=== PATIENT | female | born 1980 ===

== ENCOUNTER 2017-07-25 15:38 | Inpatient (IN) | payer MEDICARE, OTHER, MEDICAID ==
--- NOTE | 2017-07-25 16:22 | C.PDOC ---
History Of Present Illness 36-year-old female, presents to the emergency department with complaints of worsening depression. Patient is non-compliant with medication for the past week. Patient states she is depressed, and is seeking admission. Denies any alcohol or drug use. No suicidal ideation. No other complaints at this time. Time Seen by Provider: 07/25/17 16:05 Chief Complaint (Nursing): Psychiatric Evaluation History Per: Patient History/Exam Limitations: no limitations Onset/Duration Of Symptoms: Days Past Medical History Reviewed: Historical Data, Nursing Documentation, Vital Signs Vital Signs: Last Vital Signs Temp 99.5 F 07/25/17 15:41 Pulse 80 07/25/17 18:31 Resp 18 07/25/17 18:31 BP 133/91 H 07/25/17 18:31 Pulse Ox 99 07/25/17 18:31 - Medical History PMH: Anxiety, Depression, Schizophrenia Denies: Diabetes, Hepatitis, HIV, HTN, Chronic Kidney Disease, Seizures, Sexually Transmitted Disease - [facility] Procedures GROUP PSYCHOTHERAPY (01/10/16) INDIVIDUAL PSYCHOTHERAPY, SUPPORTIVE (01/10/16) MEDICATION MANAGEMENT (01/10/16) Family History: States: No Known Family Hx - Social History Hx Tobacco Use: No Hx Alcohol Use: No Hx Substance Use: No - Immunization History Hx Tetanus Toxoid Vaccination: No Hx Influenza Vaccination: No Hx Pneumococcal Vaccination: No Review Of Systems Except As Marked, All Systems Reviewed And Found Negative. Constitutional: Negative for: Fever, Chills Cardiovascular: Negative for: Chest Pain Respiratory: Negative for: Shortness of Breath Gastrointestinal: Negative for: Vomiting Neurological: Negative for: Weakness Psych: Positive for: Depression. Negative for: Psychosis, Suicidal ideation Physical Exam - Physical Exam Appears: Non-toxic, No Acute Distress, Other (flat affect. No active psychosis) Skin: Warm, Dry, No Rash Head: Atraumatic, Normacephalic Eye(s): bilateral: Normal Inspection, PERRL, EOMI Nose: Normal Oral Mucosa: Moist Lips: Normal Appearing Neck: Normal ROM Chest: Symmetrical Cardiovascular: Rhythm Regular, No Murmur Respiratory: Normal Breath Sounds, No Accessory Muscle Use Gastrointestinal/Abdominal: Soft, No Tenderness Extremity: Normal ROM Neurological/Psych: Oriented x3, Normal Speech ED Course And Treatment - Laboratory Results Result Diagrams: 07/25/17 17:17 07/25/17 17:17 O2 Sat by Pulse Oximetry: 99 Pulse Ox Interpretation: Normal Reevaluation Time: 17:44 Reassessment Condition: Unchanged (MED CLEAR CRISIS. PSYCH NOTIFIED. RECOMMEND MEDICINE CONSULT PRN FOR ASYMPTOMATIC BACTERIURIA) Disposition Counseled Patient/Family Regarding: Studies Performed, Diagnosis - Disposition Disposition: HOSPITALIZED Disposition Time: 20:25 Condition: STABLE Forms: [facility] (Gambian) - POA Present On Arrival: None - Clinical Impression Clinical Impression: Schizophrenia - Scribe Statement The provider has reviewed the documentation as recorded by the Scribe (Jerel Mills) All medical record entries made by the Scribe were at my direction and personally dictated by me. I have reviewed the chart and agree that the record accurately reflects my personal performance of the history, physical exam, medical decision making, and the department course for this patient. I have also personally directed, reviewed, and agree with the discharge instructions and disposition. Decision To Admit - Pt Status Changed To: Hospital Disposition Of: Inpatient - Admit Certification Admit to Inpatient:: After my assessment, the patient will require hospitalization for at least two midnights. This is because of the severity of symptoms shown, intensity of services needed, and/or the medical risk in this patient being treated as an outpatient. - InPatient: Physician Admission Certification: I certify that this patient requires 2 or more midnights of care for the following reason:: see note - . Bed Request Type: Psychiatry Admitting Physician: Shalini Willingham Patient Diagnosis: Schizophrenia
[2017-07-25 17:28] LABS: BASO # 0.1 K/uL (0.0-0.2); BASO % 0.6 % (0.0-2.0); EOS % 0.3 % (0.0-4.0); HEMATOCRIT 38.9 % (34.0-47.0); LYMPH # 3.3 K/uL (1.0-4.3); LYMPH % 26.6 % (20.0-40.0); MEAN CELL VOLUME 88.3 fL (81.0-99.0); MEAN CORPUSCULAR HEMOGLOBIN 30.1 pg (27.0-31.0); MEAN CORPUSCULAR HGB CONC 34.1 g/dL (33.0-37.0); MEAN PLATELET VOLUME 8.9 fL (7.2-11.7); MONO # 0.6 K/uL (0.0-0.8); RED CELL DISTRIBUTION WIDTH 12.6 % (11.5-14.5); WHITE BLOOD COUNT 12.3 K/uL (4.8-10.8)
[2017-07-25 17:34] LABS: ALCOHOL SERUM < 10 mg/dl (0-10); ALKALINE PHOSPHATASE 66 U/L (38-126); ALT/SGPT 35 U/L (9-52); AST/SGOT 21 U/L (14-36); BILIRUBIN,TOTAL 0.8 mg/dL (0.2-1.3); BLOOD UREA NITROGEN 8 mg/dL (7-17); CALCIUM 8.6 mg/dl (8.6-10.4); CARBON DIOXIDE 26 mmol/L (22-30); CHLORIDE 99 mmol/L (98-107); GFR AFRICAN-AMERICAN > 60; GLUCOSE,RANDOM 95 mg/dL (65-105); POTASSIUM 3.3 mmol/L (3.6-5.2); SODIUM 138 mmol/L (132-148); TOTAL PROTEIN 8.4 g/dL (6.3-8.3)
[2017-07-25 17:38] LABS: RBC URINE 28 /hpf (0-3); TRANSITIONAL EPITHIAL < 1 /hpf (0-3); URINE BACTERIA MOD (<OCC); URINE BILIRUBIN NEGATIVE (NEGATIVE); URINE BLOOD 2+ (NEGATIVE); URINE COLOR Yellow (YELLOW); URINE GLUCOSE (UA) NORMAL (Normal); URINE KETONE TRACE mg/dL (NEGATIVE); URINE LEUKOCYTE ESTERASE 2+ Leu/uL (Negative); URINE PROTEIN 1+ mg/dL (NEGATIVE); URINE UROBILINOGEN NORMAL mg/dL (0.2-1.0); WBC URINE 12 /hpf (0-5)
[2017-07-25 18:03] LABS: ALB/GLOB RATIO 1.3 (1.0-2.1)
[2017-07-25 20:55] VITALS: O2SAT 100
[2017-07-25] MEDS: Potassium Chloride 20 mEq ER Tab PO SCH (22:56)
[2017-07-26 08:20] LABS: BLOOD UREA NITROGEN 9 mg/dL (7-17); CALCIUM 8.8 mg/dl (8.6-10.4); CARBON DIOXIDE 25 mmol/L (22-30); CHLORIDE 101 mmol/L (98-107); GFR AFRICAN-AMERICAN > 60; GLUCOSE,RANDOM 101 mg/dL (65-105); POTASSIUM 3.4 mmol/L (3.6-5.2); SODIUM 138 mmol/L (132-148)
--- NOTE | 2017-07-26 08:22 | PCM.BM ---
<Kaelyn Vanessa - Last Filed: 07/26/17 08:21> Treatment Plan Problems - Problems identified on initial assessmt Depression Date Initiated: 07/26/17 Time Initiated: 08:21 Assessment reference: NA Status: Active Treatment assets and liabiliti Patient Assests: adapts well, insightful Patient Liabilities: live alone - Milieu Protocol Maintain good personal hygiene: every shift Encourage regular showers, every shift Remind patient to perform daily oral care, every shift Assist patient to perform ADL's Maintain personal safety: every shift Educate patient to report safety concerns to staff, every shift Monitor environment for contraband/sharps Medication safety: Monitor for expected outcome, potential side effects: every shift, Assess barriers to learning: every shift, Assess readiness for medication education: every shift <Yu Siegel - Last Filed: 07/29/17 11:24> Family Contact Family involvement: Family/SO is involved Family contact: Patient declines to allow family contact at present - Goals for Treatment Patient goals for treatment: "I don't know." Discharge/Continuing Care - Education Needs Education Needs: Patient Medication, Patient Coping Skills - Discharge Discharge Criteria: Tolerates medication w/o severe side effects, Reduction of target symptoms Discharge to:: Home, With Family - Treatment Team Participation Discussed with Family/SO: No Was Patient/Family/SO present at Treatment Team Meeting: Yes <Enid Muse - Last Filed: 07/29/17 11:26> - Diagnosis (1) Schizophrenia Status: Acute Interventions: 07/29/17 11:26 * Assess/adjust medications daily and /or as needed * See patient on an individual basis 7x/week to assess status of hallucinations * Discuss risks, benefits, side effects and alternatives of medications *
[2017-07-26 08:46] LABS: THYROID STIMULATING HORMONE 2.77 mIU/L (0.46-4.68)
--- NOTE | 2017-07-26 09:32 | PCM.PSYCH ---
Initial Psychiatric Evaluation - Initial Psychiatric Evaluation Type of Admission: Voluntary Legal Status: Capacity Chief Complaint (in patient's own words): I am sorry, I am feeling bad.' History of Present Illness and Precipitating Events: Patient is a 36-year-old single female presented to the ED for bizarre behavior. Patient was accompanied by her cousin Ria Briscoe and sister. As per the ED charts, her cousin reported that patient has been behaving bizarrely the past 24 hours. She is constantly apologizing, talking to herself, pacing throughout the house, moving things in the house from one room to another, staring, crying and mute at times. As per the family, in the past when these behaviors occurred it meant patient was decompensating into agitation and aggression. She was [facility] discharged form [facility] more than a year ago. She is not taking her meds for more than 2 weeks. Today, patient remained paranoid and suspicious throughout the evaluation. She appeared disheveled and unkempt. She started crying and became apologetic and appeared very disorganized and delusional. Later, she became mute and started looking around with a blank stare. However, she denies any suicidal ideation or any homicidal ideation. Staff reports that pt has been pacing back and forth since last night. Current Medications: Active Medications Generic Name Dose Route Start Last Admin Trade Name Freq PRN Reason Stop Dose Admin Hydroxyzine HCl 25 mg 07/25/17 21:50 07/26/17 02:46 Atarax PO 25 mg Q4H PRN Administration Anxiety Ibuprofen 400 mg 07/25/17 21:50 Motrin Tab PO Q6H PRN Pain, moderate (4-7) Nitrofurantoin Macrocrystals 100 mg 07/26/17 10:00 Macrobid PO Q12H MARVIN Olanzapine 10 mg 07/25/17 22:00 07/25/17 22:56 Zyprexa PO 10 mg HS MARVIN Administration Potassium Chloride 20 meq 07/25/17 22:00 07/25/17 22:56 K-Dur 20 Meq Er Tab PO 07/26/17 10:01 20 meq DAILY MARVIN Administration Trazodone HCl 50 mg 07/25/17 21:49 Desyrel PO HS PRN Insomnia Past Psychiatric History - Past Psychiatric History Previous Treatment History: Inpatient Pertinent Medical Hx (Current Medical&Sleep Prob, Allergies): Allergies Allergy/AdvReac Type Severity Reaction Status Date / Time No Known Allergies Allergy Verified 07/25/17 15:42 OLANZapine [Zyprexa] 10 mg PO HS #30 tab 03/17/15 traZODone [Desyrel] 50 mg PO HS PRN #30 tab 01/18/16 Review of Systems - Review of Systems All systems: reviewed and no additional remarkable complaints except - Psychiatric Psychiatric: Anxiety, Hallucinations, Irritability, Paranoia Mental Status Examination - Personal Presentation Personal Presentation: Looks stated age - Affect Affect: Constricted - Motor Activity Motor Activity: Psychomotor Retardation - Reliability in Providing Information Reliability in Providing Information: Poor, due to alteration in thoughts, Poor , due to altered mood - Speech Speech: Disorganized - Mood Mood: Anxious - Formal Thought Process Formal Thought Process: Hallucinations, Delusions, Paranoia, Loosening of associations - Hallucinations/Delusions Hallucinations: Auditory Delusions: Persecution - Obsessions/Compulsions Obsessions: No Compulsions: No - Cognitive Functions Orientation: Person, Place, Situation, Time Sensorium: Alert Attention/Concentration: Attentive Abstract Thinking: [place] Estimate of Intelligence: Below average Judgement: Imparied, as evidence by: Poor judgement, Imparied, as evidence by: Lack of insight into illness - Risk Risk: Diminished functioning - Strength & Assets Inventory Strength & Assets Inventory: Family support DSM 5 DX - DSM 5 DSM 5 Diagnosis: Schizophrenia paranoid type continuous - Recommended/Plan of Treatment Treatment Recommendations and Plan of Treatment: Schizophrenia paranoid type continuous CBT Psychoeducation Supportive therapy, group therapy, individual therapy Olanzapine 10 mg by mouth HS Trazodone 50 mg by mouth daily at bedtime - Smoking Cessation Smoking Cessation Initiated: No
[2017-07-26] MEDS: Potassium Chloride 20 mEq ER Tab PO SCH (09:48)
[2017-07-26] MEDS: Ergocalciferol 50,000 Intl Units Cap PO SCH (13:06)
--- NOTE | 2017-07-28 05:39 | PCM.PYCHPN ---
Psychiatric Progress Note - Psychiatric Progress Note Patient seen today, length of contact: 16 min Problems Identified/Issues Discussed: The pt is seen, chart reviewed, case discussed with staff. The pt is compliant with medications and reports no side-effects. Symptoms are improving BUT very slowly and needs more time to stabilize. Support and psychoeducation given. Still very internally preoccupied Medication Change: Yes (meds change) Medical Record Reviewed: Yes Mental Status Examination - Cognitive Function Orientation: Person, Place, Situation, Time Memory: Impaired Attention: Poor Concentration: Poor Association: Loose Fund of Knowledge: Poor - Mood Mood: Anxious - Affect Affect: Constricted - Formal Thought Process Formal Thought Process: Hallucinations, Delusions, Paranoia, Loosening of associations - Suicidal Ideation Suicidal Ideation: No - Homicidal Ideation Homicidal Ideation: No Goal/Treatment Plan - Goal/Treatment Plan Need for Continued Stay: Discharge may exacerbated symptoms, Severe functional impairment Progress Toward Problem(s) and Goals/Treatment Plan: Continue medications Support and psychoeducation daily Attend groups and activities daily After care planning by NA
--- NOTE | 2017-07-28 12:48 | PCM.PYCHPN ---
Psychiatric Progress Note - Psychiatric Progress Note Patient seen today, length of contact: 16 min Patient Chief Complaint: I am sorry, I am feeling bad.' Problems Identified/Issues Discussed: The patient was seen, chart reviewed, and case discussed with staff. Patient remained disorganized, and internally preoccupied. She remained delusional, suspicious and paranoid. She remained partially mute and internally preoccupied. She remained guarded about any information. She is very limited in her responses. Patient is compliant with medications and reports no side effects. Symptoms are improving but need more time to stabilize. After care discussed, support and psychoeducation given. Medication Change: Yes (meds change) Medical Record Reviewed: Yes Mental Status Examination - Cognitive Function Orientation: Person, Place, Situation, Time Memory: Impaired Attention: Poor Concentration: Poor Association: Loose Fund of Knowledge: Poor - Mood Mood: Anxious - Affect Affect: Constricted - Formal Thought Process Formal Thought Process: Hallucinations, Delusions, Paranoia, Loosening of associations - Suicidal Ideation Suicidal Ideation: No - Homicidal Ideation Homicidal Ideation: No Goal/Treatment Plan - Goal/Treatment Plan Need for Continued Stay: Discharge may exacerbated symptoms, Severe functional impairment Progress Toward Problem(s) and Goals/Treatment Plan: Schizophrenia paranoid type continuous CBT Psychoeducation Supportive therapy, group therapy, individual therapy Olanzapine 10 mg by mouth HS Trazodone 50 mg by mouth daily at bedtime Hydroxyzine 25 mg PO Q6hr prn - Smoking Cessation Smoking Cessation Initiated: No
--- NOTE | 2017-07-29 10:02 | PCM.PYCHPN ---
Psychiatric Progress Note - Psychiatric Progress Note Patient seen today, length of contact: 16 min Patient Chief Complaint: "not good" Problems Identified/Issues Discussed: The patient was seen, chart reviewed, and case discussed with staff. Staff report no events overnight. Patient appears disorganized and internally preoccupied. She is highly suspicious and is guarded about any information. She is very limited in her responses. She states, "I don't have my voice. I feel empty inside." Patient is compliant with medications and reports no side effects. Symptoms are improving but need more time to stabilize. After care discussed, support and psychoeducation given. Medication Change: Yes (Increase Olanzapine) Medical Record Reviewed: Yes Mental Status Examination - Cognitive Function Orientation: Person, Place, Situation, Time Memory: Impaired Attention: Poor Concentration: Poor Association: Loose Fund of Knowledge: Poor - Mood Mood: Anxious - Affect Affect: Constricted - Speech Speech: Soft - Formal Thought Process Formal Thought Process: Hallucinations, Delusions, Paranoia, Loosening of associations - Suicidal Ideation Suicidal Ideation: No - Homicidal Ideation Homicidal Ideation: No Goal/Treatment Plan - Goal/Treatment Plan Need for Continued Stay: Discharge may exacerbated symptoms, Severe functional impairment Progress Toward Problem(s) and Goals/Treatment Plan: Schizophrenia paranoid type continuous CBT Psychoeducation Supportive therapy, group therapy, individual therapy Olanzapine 10 mg by mouth HS Trazodone 50 mg by mouth daily at bedtime - Smoking Cessation Smoking Cessation Initiated: No
--- NOTE | 2017-07-30 10:34 | PCM.PYCHPN ---
Psychiatric Progress Note - Psychiatric Progress Note Patient seen today, length of contact: 16 min Patient Chief Complaint: "not good" Problems Identified/Issues Discussed: The patient was seen, chart reviewed, and case discussed with staff. Patient remained disorganized, suspicious and paranoid. She remained partially mute and internally preoccupied. She remained guarded about any information. She is very limited in her responses. She states, "I don't have my voice. I feel empty inside." Patient is compliant with medications and reports no side effects. Symptoms are improving but need more time to stabilize. After care discussed, support and psychoeducation given. Medication Change: Yes (Increase paxil) Medical Record Reviewed: Yes Mental Status Examination - Cognitive Function Orientation: Person, Place, Situation, Time Memory: Impaired Attention: Poor Concentration: Poor Association: Loose Fund of Knowledge: Poor - Mood Mood: Anxious - Affect Affect: Constricted - Speech Speech: Soft - Formal Thought Process Formal Thought Process: Hallucinations, Delusions, Paranoia, Loosening of associations - Suicidal Ideation Suicidal Ideation: No - Homicidal Ideation Homicidal Ideation: No Goal/Treatment Plan - Goal/Treatment Plan Need for Continued Stay: Discharge may exacerbated symptoms, Severe functional impairment Progress Toward Problem(s) and Goals/Treatment Plan: Schizophrenia paranoid type continuous CBT Psychoeducation Supportive therapy, group therapy, individual therapy Paxil 10 mg PO Daily Olanzapine 10 mg by mouth HS Olanzapine 5 mg by mouth Daily Trazodone 50 mg by mouth daily at bedtime - Smoking Cessation Smoking Cessation Initiated: No
--- NOTE | 2017-07-31 11:17 | PCM.PYCHPN ---
Psychiatric Progress Note - Psychiatric Progress Note Patient seen today, length of contact: 16 min Patient Chief Complaint: "not good" Problems Identified/Issues Discussed: This patient was seen, chart reviewed, and case discussed with staff. Patient and staff report no events overnight. She reports depressed mood and reports some improvement in her feelings of hopelessness and helplessness. she slept well and has improvement in her auditory hallucinations. She denies any suicidal or homicidal ideations. Staff reports that she has started speaking but during conversation she gets mute and starts staring. She has started participating in group activities. Patient appears disheveled but appropriately dressed. She remains superficially cooperative and internally preoccupied, but less than previous days. She has a constricted affect with guarded soft speech. She is seen walking in the halls and is social at times. Patient is compliant with medications and reports no side effects. Symptoms are improving but need more time to stabilize. After care discussed, support and psychoeducation given. Medication Change: Yes (Increase paxil) Medical Record Reviewed: Yes Mental Status Examination - Cognitive Function Orientation: Person, Place, Situation, Time Memory: Impaired Attention: WNL Concentration: Poor Association: Loose Fund of Knowledge: Poor - Mood Mood: Anxious - Affect Affect: Constricted - Speech Speech: Soft - Formal Thought Process Formal Thought Process: Loosening of associations - Suicidal Ideation Suicidal Ideation: No - Homicidal Ideation Homicidal Ideation: No Goal/Treatment Plan - Goal/Treatment Plan Need for Continued Stay: Discharge may exacerbated symptoms, Severe functional impairment Progress Toward Problem(s) and Goals/Treatment Plan: Schizophrenia paranoid type continuous CBT Psychoeducation Supportive therapy, group therapy, individual therapy Paxil 20 mg PO Daily Olanzapine 5 mg by mouth Daily Olanzapine 10 mg by mouth HS Trazodone 50 mg by mouth daily at bedtime Hydroxuzine 25 mg pO Q4 hr prn - Smoking Cessation Smoking Cessation Initiated: No
--- NOTE | 2017-08-01 14:57 | PCM.PYCHPN ---
Psychiatric Progress Note - Psychiatric Progress Note Patient seen today, length of contact: 16 min Patient Chief Complaint: "I'm good" Problems Identified/Issues Discussed: This patient was seen, chart reviewed, and case discussed with staff. Patient and staff report no events overnight. She reports simprovement in her mood and auditory hallucinations. She also reports improvement in her paranoia. She denies any suicidal or homicidal ideations. She expresses concern due to being in the hospital and hopes to be discharged soon to see her family. Patient appears disheveled but appropriately dressed. She cooperative but remains guarded during the interview. She has limited social interactions but participates in unit activities. Patient is compliant with medications and reports no side effects. Symptoms are improving but need more time to stabilize. After care discussed, support and psychoeducation given. Medication Change: Yes (increase olanzapine) Medical Record Reviewed: Yes Mental Status Examination - Cognitive Function Orientation: Person, Place, Situation, Time Memory: Impaired Attention: WNL Concentration: Poor Association: Loose Fund of Knowledge: Poor - Mood Mood: Depressed, Anxious - Affect Affect: Constricted, Depressed - Speech Speech: Soft - Formal Thought Process Formal Thought Process: Loosening of associations - Suicidal Ideation Suicidal Ideation: No - Homicidal Ideation Homicidal Ideation: No Goal/Treatment Plan - Goal/Treatment Plan Need for Continued Stay: Discharge may exacerbated symptoms, Severe functional impairment Progress Toward Problem(s) and Goals/Treatment Plan: Schizophrenia paranoid type continuous CBT Psychoeducation Supportive therapy, group therapy, individual therapy Paxil 20 mg PO Daily Olanzapine 10 mg by mouth Daily Olanzapine 10 mg by mouth HS Benztropine 1 mg pO BID Trazodone 50 mg by mouth daily at bedtime Hydroxuzine 25 mg pO Q4 hr prn - Smoking Cessation Smoking Cessation Initiated: No
[2017-08-02] MEDS: Ergocalciferol 50,000 Intl Units Cap PO SCH (12:00)
--- NOTE | 2017-08-03 08:59 | PCM.PYCHPN ---
Psychiatric Progress Note - Psychiatric Progress Note Patient seen today, length of contact: 16 min Patient Chief Complaint: "I'm good" Problems Identified/Issues Discussed: This patient was seen, chart reviewed, and case discussed with staff. Patient and staff report no events overnight. She continues to report improvement in her mood, auditory hallucinations, and paranoia. She denies any suicidal or homicidal ideations. She continues to ask about her discharge to see family. Patient appears disheveled but appropriately dressed. She cooperative but remains guarded during the interview. She has limited social interactions but participates in unit activities. She appears less internally preoccupied than previous days. Patient is compliant with medications and reports no side effects. Symptoms are improving but need more time to stabilize. After care discussed, support and psychoeducation given. Medical Problems: She complains of discoloration to her eyelids. Medication Change: Yes (increase olanzapine) Medical Record Reviewed: Yes Mental Status Examination - Cognitive Function Orientation: Person, Place, Situation, Time Memory: Impaired Attention: WNL Concentration: Poor Association: Loose Fund of Knowledge: Poor - Mood Mood: Depressed, Anxious - Affect Affect: Constricted, Depressed - Speech Speech: Soft - Formal Thought Process Formal Thought Process: Loosening of associations - Suicidal Ideation Suicidal Ideation: No - Homicidal Ideation Homicidal Ideation: No Goal/Treatment Plan - Goal/Treatment Plan Need for Continued Stay: Discharge may exacerbated symptoms, Severe functional impairment Progress Toward Problem(s) and Goals/Treatment Plan: Schizophrenia paranoid type continuous CBT Psychoeducation Supportive therapy, group therapy, individual therapy Paxil 20 mg PO Daily Olanzapine 10 mg by mouth Daily Olanzapine 10 mg by mouth HS Benztropine 1 mg pO BID Trazodone 50 mg by mouth daily at bedtime Hydroxuzine 25 mg pO Q4 hr prn
[2017-08-04] MEDS ORDERED: Magnesium Hydroxide Susp 30 ml UD PO ONE (19:52)
[2017-08-04] MEDS ORDERED: Magnesium Hydroxide Susp 30 ml UD PO PRN (19:58)
[2017-08-05 06:25] VITALS: BP 100/70; PULSE 81; RESP 20; TEMP 98.2
--- NOTE | 2017-08-05 11:27 | PCM.PYCHDC ---
Mental Status Examination - Mental Status Examination Orientation: Person, Place, Situation, Time Memory: Intact Mood: Neutral Affect: Constricted Speech: Soft Attention: WNL Concentration: WNL Association: WNL Fund of Knowledge: WNL Formal Thought Process: No Impairment Description of patient's judgement and insight: good, fair Psychotic Thoughts and Behaviors: denies any AVH Suicidal Ideation: No Current Homicidal Ideation?: No Discharge Summary - Discharge Note Reason for Hospitalization: Patient is a 36-year-old single female presented to the ED for bizarre behavior. Patient was accompanied by her cousin Ria Briscoe and sister. As per the ED charts, her cousin reported that patient has been behaving bizarrely the past 24 hours. She is constantly apologizing, talking to herself, pacing throughout the house, moving things in the house from one room to another, staring, crying and mute at times. As per the family, in the past when these behaviors occurred it meant patient was decompensating into agitation and aggression. She was last discharged form [facility] more than a year ago. She is not taking her meds for more than 2 weeks. Today, patient remained paranoid and suspicious throughout the evaluation. She appeared disheveled and unkempt. She started crying and became apologetic and appeared very disorganized and delusional. Later, she became mute and started looking around with a blank stare. However, she denies any suicidal ideation or any homicidal ideation. Staff reports that pt has been pacing back and forth since last night. Consultations:: List each consultation separately and include: 1. Reason for request. 2. Findings. 3. Follow-up Summary of Hospital Course include:: 1. Description of specific treatment plan utilized for patients during their course of treatmen. 2. Summarize the time- course for resolution of acute symptoms and/or regressed behaviors. 3. Describe issues identified and worked on during hospitalization. 4. Describe medication utilized. 5. Describe medical problems identified and treated. 6. Reassessment of suicide risk Summary of Hospital Course: During the course of her stay, patient (pt) started progressively improving and no longer remained irritable, depressed, and suicidal. Her mood and anxiety were improved and she started attending groups and meetings and started socializing. Patient denied any feelings of hopelessness, helplessness, and worthlessness, denied any problem with the sleep or appetite, denied suicidal ideation or homicidal ideation. Pt denied any auditory or visual hallucinations. Some changes were made in her current medications and patient was discharged on following medications. She tolerated these medications very well and denied any side effects. She was discharged to the [facility]/private psychiatrist - Diagnosis (1) Schizophrenia Status: Acute - Final Diagnosis (DSM 5) Condition upon Discharge: STABLE DSM 5: Schizophrenia paranoid type continuous Disposition: HOME/ ROUTINE Follow-up Treatment Plan: Education: Pt was educated and counseled about the risks and benefits of taking and not taking medications. Pt was educated and counseled about the risks of drinking and abusing drugs. Pt was educated and counseled to go to the ER or call 911 if pt develop suicidal ideation or homicidal ideation, worsening of symptoms or severe side effects of the meds. Prescriptions/Medication Reconciliation: Benztropine [Cogentin] 1 mg PO BID #60 tab OLANZapine [Zyprexa] 10 mg PO BID #60 tab PARoxetine [Paxil] 30 mg PO DAILY #30 tab traZODone [Desyrel] 50 mg PO HS PRN #30 tab PRN Reason: Insomnia
== END 2017-08-05 14:03 | disposition home or self-care (01) | DRG 885 ==
LOC: C.ER 15:38 → C.5E 20:25 → UNDOADMIN 20:25
PROVIDERS: ADMIT Psychiatry & Neurology Psychiatry; ATTEND Psychiatry & Neurology Psychiatry
PROC: GZHZZZZ Group Psychotherapy (ICD-10-PCS; principal; 2017-07-25)
PROC: GZ58ZZZ Individual Psychotherapy, Cognitive-Behavioral (ICD-10-PCS; 2017-07-25)
PROC: GZ56ZZZ Individual Psychotherapy, Supportive (ICD-10-PCS; 2017-07-25)
DX: F20.0 Paranoid schizophrenia (principal); Z91.14 Patient's other noncompliance with medication regimen; Z79.899 Other long term (current) drug therapy

== ENCOUNTER 2018-11-11 02:03 | Inpatient (IN) | payer MEDICARE, MEDICAID ==
--- NOTE | 2018-11-11 02:15 | C.PDOC ---
History Of Present Illness Patient was seen and medically cleared at [facility]. Pt was accepted in tranfer by dr rudd. Pt pleasant , cooperative Time Seen by Provider: 11/11/18 02:14 Chief Complaint (Nursing): Psychiatric Evaluation History Per: Patient History/Exam Limitations: no limitations Onset/Duration Of Symptoms: Days Current Symptoms Are (Timing): Still Present Suicide/Self Injury Attempted (Context): None Modifying Factor(s): None Pain Scale Rating Of: 3 Associated Symptoms: Depression Involuntary Hold By: None Recent travel outside of the [place]: No Additional History Per: Patient, Other (hospital) Past Medical History Reviewed: Historical Data, Nursing Documentation, Vital Signs - Medical History PMH: Anxiety, Depression, Schizophrenia Denies: Diabetes, Hepatitis, HIV, HTN, Chronic Kidney Disease, Seizures, Sexually Transmitted Disease - [facility] GROUP PSYCHOTHERAPY (07/25/17) INDIVIDUAL PSYCHOTHERAPY, COGNITIVE-BEHAVIORAL (07/25/17) INDIVIDUAL PSYCHOTHERAPY, SUPPORTIVE (07/25/17) MEDICATION MANAGEMENT (01/10/16) Family History: States: No Known Family Hx - Social History Hx Tobacco Use: No Hx Alcohol Use: No Hx Substance Use: No - Immunization History Hx Tetanus Toxoid Vaccination: No Hx Influenza Vaccination: No Hx Pneumococcal Vaccination: No Review Of Systems Constitutional: Negative for: Fever, Chills Cardiovascular: Negative for: Chest Pain Respiratory: Negative for: Shortness of Breath Gastrointestinal: Negative for: Abdominal Pain Neurological: Negative for: Weakness Psych: Positive for: Depression Physical Exam - Physical Exam Appears: Non-toxic, No Acute Distress Chest: Symmetrical Cardiovascular: Rhythm Regular Respiratory: No Rales, No Rhonchi, No Wheezing Gastrointestinal/Abdominal: Soft, No Tenderness Extremity: Normal ROM Neurological/Psych: Oriented x3 Gait: Steady ED Course And Treatment O2 Sat by Pulse Oximetry: 100 Pulse Ox Interpretation: Normal Disposition Discussed With : Shalini Rudd Comment: accepted the pt on his service and took over the care at 2:14 AM Doctor Will See Patient In The: Hospital Counseled Patient/Family Regarding: Studies Performed, Diagnosis - Disposition Disposition: HOSPITALIZED Disposition Time: 02:14 Condition: FAIR Forms: [facility] (Korean) - POA Present On Arrival: None - Clinical Impression Clinical Impression: Schizophrenia Decision To Admit - Pt Status Changed To: Hospital Disposition Of: Inpatient - Admit Certification Admit to Inpatient:: After my assessment, the patient will require hospitalization for at least two midnights. This is because of the severity of symptoms shown, intensity of services needed, and/or the medical risk in this patient being treated as an outpatient. - InPatient: Physician Admission Certification: I certify that this patient requires 2 or more midnights of care for the following reason:: After my assessment, the patient will require hospitalization for at least two midnights. This is because of the severity of symptoms shown, intensity of services needed, and/or the medical risk in this patient being treated as an outpatient. - . Bed Request Type: Psychiatry Admitting Physician: Shalini Rudd Patient Diagnosis: Schizophrenia
--- NOTE | 2018-11-11 05:00 | PCM.BM ---
<Marissa Boo - Last Filed: 11/11/18 04:58> Treatment Plan Problems - Problems identified on initial assessmt Alterate thought process Date Initiated: 11/11/18 Time Initiated: 04:00 Assessment reference: NA Status: Active deffecting copyn Date Initiated: 11/11/18 Time Initiated: 04:00 Assessment reference: NA Status: Active Treatment assets and liabiliti Patient Assests: adapts well, insightful, ADL independent, good support system, cognitively intact Patient Liabilities: poor support system, auditory impairment - Milieu Protocol Maintain good personal hygiene: daily Encourage regular showers, daily Remind patient to perform daily oral care, daily Assist patient to perform ADL's Conduct patient checks and document Observation sheet: Q15 minutes Maintain personal safety: every shift Educate patient to report safety concerns to staff, every shift Monitor environment for contraband/sharps Medication safety: Monitor for expected outcome, potential side effects: every shift, Assess barriers to learning: every shift, Assess readiness for medication education: every shift <Enid Muse - Last Filed: 11/12/18 11:24> - Diagnosis (1) Schizophrenia Status: Acute Interventions: 11/12/18 11:24 * Assess/adjust medications daily and /or as needed * See patient on an individual basis 7x/week to assess status of hallucinations * Discuss risks, benefits, side effects and alternatives of medications * <Yu Siegel - Last Filed: 11/12/18 11:37> Family Contact Family involvement: Family/SO is involved Family contact: Patient agrees to contact Family contact name: Alise Cao-sister Family contacted how many times per week?: 1 - Goals for Treatment Patient goals for treatment: "I don't know." Discharge/Continuing Care - Education Needs Education Needs: Patient Medication, Patient Coping Skills - Discharge Discharge Criteria: Tolerates medication w/o severe side effects, Reduction of target symptoms Discharge to:: Home, With Family - Treatment Team Participation Discussed with Family/SO: No Was Patient/Family/SO present at Treatment Team Meeting: Yes
--- NOTE | 2018-11-11 10:52 | PCM.PSYCH ---
Initial Psychiatric Evaluation - Initial Psychiatric Evaluation Type of Admission: Voluntary Legal Status: Capacity Chief Complaint (in patient's own words): I was hearing voices. History of Present Illness and Precipitating Events: This is a 38 year old [place] female, who is single, lives alone, and unemployed, came to [facility] because because of the disorganized behavior. Patient has a long history of schizophrenia paranoid type continues. She has a history of multiple psychiatric hospitalizations. She was last at [facility] almost 2 years ago and did not follow up with a psychiatrist after discharge. Patient is a poor historian. Patient appears disorganized and internally preoccupied. She appears very disheveled and unkempt. She reports that she was taking her medication until they ran out. As per patient she became noncompliant with medications. Patient states she hears voices telling her to harm herself and others. She also states she sees the devil, but it does not say anything to her. She became increasingly disorganized and paranoid. Yesterday she became increasingly disorganized she came to the hospital to get help. She remained made paranoid, psychotic and bizarre throughout the interview. She was responding to internal stimuli, abrupted speech, suspicious of her surroundings, disheveled, and disorganized in appearance and behavior. PsychHx: Schizophrenia paranoid type continues MedHx: denies Allergies: unobtainable Meds: Risperdal, Benztropine Current Medications: Active Medications Generic Name Dose Route Start Last Admin Trade Name Freq PRN Reason Stop Dose Admin Benztropine Mesylate 0.5 mg 11/11/18 06:43 11/11/18 07:26 Cogentin PO 0.5 mg Q6 PRN Administration Muscle spasm Haloperidol 5 mg 11/11/18 06:36 11/11/18 07:26 Haldol PO 5 mg Q6 PRN Administration Agitation Hydroxyzine HCl 25 mg 11/11/18 04:31 11/11/18 07:26 Atarax PO 25 mg Q6 PRN Administration Anxiety Influenza Virus Vaccine 60 mcg 11/13/18 10:00 Flucelvax Quad [id number] Syr IM 11/13/18 10:01 .ONCE ONE Pneumococcal Polyvalent Vaccine 0.5 ml 11/13/18 10:30 Pneumovax 23 Vaccine IM 11/13/18 10:31 .ONCE ONE Past Psychiatric History - Past Psychiatric History Previous Treatment History: Inpatient Pertinent Medical Hx (Current Medical&Sleep Prob, Allergies): Allergies Allergy/AdvReac Type Severity Reaction Status Date / Time No Known Allergies Allergy Verified 11/11/18 02:15 No Known Home Med 11/11/18 Review of Systems - Review of Systems All systems: reviewed and no additional remarkable complaints except - Psychiatric Psychiatric: Anxiety, Auditory Hallucinations, Irritability, Paranoia Mental Status Examination - Personal Presentation Personal Presentation: Looks stated age - Affect Affect: Constricted - Motor Activity Motor Activity: Calm - Reliability in Providing Information Reliability in Providing Information: Poor, due to alteration in thoughts, Poor, due to altered mood - Speech Speech: Disorganized - Mood Mood: Anxious - Formal Thought Process Formal Thought Process: Hallucinations, Delusions, Paranoia, Loosening of associations - Hallucinations/Delusions Hallucinations: Visual, Auditory Delusions: Persecution - Obsessions/Compulsions Obsessions: No Compulsions: No - Cognitive Functions Orientation: Person, Place, Situation, Time Sensorium: Alert Attention/Concentration: Attentive Abstract Thinking: Nikolai Estimate of Intelligence: Below average Judgement: Imparied, as evidence by: Poor judgement, Imparied, as evidence by: Lack of insight into illness - Risk Risk: Suicidal, Diminished functioning - Limitations Limitations: Living alone DSM 5 DX - DSM 5 DSM 5 Diagnosis: Schizophrenia paranoid type continues - Recommended/Plan of Treatment Treatment Recommendations and Plan of Treatment: Schizophrenia paranoid continuous -CBT -Psycho education -Supportive therapy and group therapy -Trazodone for insomnia -Zyprexa for psychosis -Hydroxyzine for anxiety - Smoking Cessation Smoking Cessation Initiated: No
--- NOTE | 2018-11-12 11:26 | PCM.PYCHPN ---
Psychiatric Progress Note - Psychiatric Progress Note Patient seen today, length of contact: 15 min Patient Chief Complaint: I was hearing voices. Problems Identified/Issues Discussed: Patient was seen and evaluated, chart reviewed and discussed the staff. Patient remained increasingly disorganized and internally preoccupied. She still appears paranoid, delusional and bizarre. She remained isolative and withdrawn. As per staff she has been talking to anyone and she is staring in the air. Staff is pushing her to eat and drink, otherwise she is not taking care of the ADLs. However she is taking medication but denies any side effects. She needs to stay longer for the stabilization of the symptoms. Medication Change: Yes Medical Record Reviewed: Yes Mental Status Examination - Cognitive Function Orientation: Person, Place, Situation, Time Memory: Intact Attention: Poor Concentration: Poor Association: Loose Fund of Knowledge: Poor - Mood Mood: Depressed, Anxious - Affect Affect: Constricted - Speech Speech: Soft - Formal Thought Process Formal Thought Process: Hallucinations, Delusions, Paranoia, Loosening of associations - Suicidal Ideation Suicidal Ideation: No - Homicidal Ideation Homicidal Ideation: No Goal/Treatment Plan - Goal/Treatment Plan Need for Continued Stay: Remain at risks for inpatient hospitalization Progress Toward Problem(s) and Goals/Treatment Plan: Schizophrenia paranoid continuous -CBT -Psycho education -Supportive therapy and group therapy -Trazodone for insomnia -Zyprexa for psychosis -Hydroxyzine for anxiety
[2018-11-13] MEDS ORDERED: Influenza Vaccine 60 mcg/0.5 mL SYR (4YR UP) IM ONE (10:00)
[2018-11-13] MEDS ORDERED: Pneumococcal 23-Valent Vaccine IM ONE (10:30)
--- NOTE | 2018-11-13 15:12 | PCM.PYCHPN ---
Psychiatric Progress Note - Psychiatric Progress Note Patient seen today, length of contact: 15 min Patient Chief Complaint: I was hearing voices. Problems Identified/Issues Discussed: Patient was seen and evaluated, chart reviewed and discussed the staff. She remained isolative and withdrawn. As per staff she is not talking to anyone and she is staring in the air. Patient remained increasingly disorganized and internally preoccupied. She still appears paranoid, delusional and bizarre. Staff is pushing her to eat and drink, otherwise she is not taking care of the ADLs. However she is taking medication but denies any side effects. She needs to stay longer for the stabilization of the symptoms. Medication Change: Yes Medical Record Reviewed: Yes Mental Status Examination - Cognitive Function Orientation: Person, Place, Situation, Time Memory: Intact Attention: Poor Concentration: Poor Association: Loose Fund of Knowledge: Poor - Mood Mood: Depressed, Anxious - Affect Affect: Constricted - Speech Speech: Soft - Formal Thought Process Formal Thought Process: Hallucinations, Delusions, Paranoia, Loosening of associations - Suicidal Ideation Suicidal Ideation: No - Homicidal Ideation Homicidal Ideation: No Goal/Treatment Plan - Goal/Treatment Plan Need for Continued Stay: Remain at risks for inpatient hospitalization Progress Toward Problem(s) and Goals/Treatment Plan: Schizophrenia paranoid continuous Rule out schizoaffective disorder depressive type -CBT -Psycho education -Supportive therapy and group therapy -Trazodone for insomnia -Zyprexa for psychosis -Hydroxyzine for anxiety -Zoloft for depression -Remeron for depression
--- NOTE | 2018-11-14 09:23 | PCM.PYCHPN ---
Psychiatric Progress Note - Psychiatric Progress Note Patient seen today, length of contact: 15 min Patient Chief Complaint: I was hearing voices. Problems Identified/Issues Discussed: Patient was seen and evaluated, chart reviewed and discussed the staff. She remained isolative and withdrawn. Patient remained increasingly disorganized and internally preoccupied. As per staff she is not talking to anyone and she is staring in the air. She still appears paranoid, delusional and bizarre. Staff is pushing her to eat and drink, otherwise she is not taking care of the ADLs. However she is taking medication but denies any side effects. She needs to stay longer for the stabilization of the symptoms. Medication Change: Yes Medical Record Reviewed: Yes Mental Status Examination - Cognitive Function Orientation: Person, Place, Situation, Time Memory: Intact Attention: Poor Concentration: Poor Association: Loose Fund of Knowledge: Poor - Mood Mood: Depressed, Anxious - Affect Affect: Constricted - Speech Speech: Soft - Formal Thought Process Formal Thought Process: Hallucinations, Delusions, Paranoia, Loosening of associations - Suicidal Ideation Suicidal Ideation: No - Homicidal Ideation Homicidal Ideation: No Goal/Treatment Plan - Goal/Treatment Plan Need for Continued Stay: Remain at risks for inpatient hospitalization Progress Toward Problem(s) and Goals/Treatment Plan: Schizophrenia paranoid continuous Rule out schizoaffective disorder depressive type -CBT -Psycho education -Supportive therapy and group therapy -Trazodone for insomnia -Zyprexa for psychosis -Hydroxyzine for anxiety -Zoloft for depression -Remeron for depression
[2018-11-14] MEDS ORDERED: Sodium Chloride 0.9% 1,000 ML IV ONE (15:34)
--- NOTE | 2018-11-14 15:40 | PCM.RRT ---
[facility] Nurses Assessment - Situation Date: 11/14/18 Time [facility] was called: 15:28 [facility] Responder Arrival Time:: 15:30 [facility] Location:: [address] [place] [address] Room Number: [id number] [facility] Reason for Call: Hypotension, Change in Mental Status [facility] Called By: RN - IV IV Inserted during [facility]?: Yes IV Fluids Initiated During [facility]?: 1L NS bolus New IV Insertion Tolerance: Good - Respiratory [facility] Delivery Method: Room Air Received Nebulizer Treatments: No Was the Patient Ventilated with Bag/Mask 100% O2?: No Secretions Suctioned?: No Was the Patient Intubated?: No Was the Patient Placed on a Ventilator?: No - Medication Medications Administered During [facility]: none - Diagnostic Test Ordered EKG: Yes Chest X-Ray: No CT Scan: No - Stat Labs Ordered [facility] Stat Labs Ordered: CBC, BMP, PT/PTT [facility] Other Labs Ordered: TSH, free T4, D-dimer, UA CPR started during [facility]?: No - Vital Signs Vital Signs: BP 68/50 HR 88 RR 16 T 97.7 - [place] Coma Scale Coma Scale Eye Opening: Spontaneous Coma Scale Motor: Obeys Commands Movement Coma Scale Verbal: No response Coma Scale Total: 11 - Sepsis Screen Part 1 Sepsis Screen Part 1: Hypotensive - Time [facility] Ended Time [facility] Ended: 16:00 - Vital Signs at end of [facility] Vital Signs at end of [facility]: BP 104/72 HR 77 RR 16 - Recommendations 5) [facility] Level of Care Recommendations: Transfer to Telemetry Notifications: Attending Physician, Consultations (Hospitalist) I.Reason for [facility] - A) Acute Change in Patient: (Select all that apply): Acute change in mental status, Acute change in SBP below Subjective: [facility] called for near syncope and hypotension. Patient was standing in the hallway talking with staff when she was observed to lower herself to the floor. She was assisted up to a chair and vitals were done. Blood pressure was 68/50. Staff reports BP was "normal" about 30 minutes prior. Patient was given oral fluids (water, juice). She did not appear in distress. Blood glucose 105. Staff reports that at baseline, patient is "psychotic." Patient is able to have a conversation but takes awhile to respond 2/2 thought blocking and delusions/hallucinations. At the time of exam, patient is following commands but is nonverbal. She is not making eye contact. An IV is inserted. Labs are drawn. Patient was transferred to telemetry in order for 1L NS to start. Patient' sBP gradually improved to 104/72 while still on psych unit. - Neurological Status (Select all that apply): Follows Commands. absent: Verbal, Aggressive - Respiratory Oxygen Delivery Method: Room Air - Constitutional Appears: No Acute Distress, Unkempt. absent: Agitated - Head Head Exam: ATRAUMATIC, NORMAL INSPECTION - Eyes Eye Exam: EOMI, Normal appearance - Respiratory Exam Respiratory Exam: Clear to Ausculation Bilateral, NORMAL BREATHING PATTERN - Cardiovascular Exam Cardiovascular Exam: REGULAR RHYTHM, +S1, +S2 - GI/Abdominal Exam GI & Abdominal Exam: Soft. absent: Tenderness - Neurological Exam Neurological Exam: Alert, Altered, Awake - Extremities Exam Extremities Exam: Normal Inspection Plan - Assessment of Findings&Treatment Plan [facility] called for near syncope and hypotension. Plan: - Lay supine - Continue PO fluids - Stat IV insertion - Stat NS 1 L bolus - Stat EKG - Stat CBC, CMP, TSH, free T4, UA, D-dimer - Transfer to telemetry - Attending notified (Dr. Muse)
--- NOTE | 2018-11-14 15:45 | CP.PCM.CON ---
<Melina Willett - Last Filed: 11/14/18 16:41> History of Present Illness - History of Present Illness History of Present Illness: PGY-1 Melina Willett D.O. Medicine consult note for Dr. Hartmann's service: Patient is a 38 yo female with a history of schizophrenia who is currently adm itted to the psychiatry unit. Hospitalists were consulted following an ROOM SERVICE BELLHOP due to near syncope and hypotension. Patient was transferred to telemetry. See ROOM SERVICE BELLHOP note for details. At the time of exam, patient is nonverbal. Information is obtained from the medical record. Please see H&P for full details. PMH: schizophrenia Meds: Remeron 15 mg PO QHS, Zyprexa 10 mg PO BID, Zoloft 100 mg PO daily, trazo done 50 mg PO QHS All: NKA SH: unemployed, lives alone FH: unknown PMD: none Review of Systems - Review of Systems Systems not reviewed;Unavailable: Altered Mental Status, Psychotic Past Patient History - Infectious Disease Hx of Infectious Diseases: None - Tetanus Immunizations Tetanus Immunization: Unknown - Past Medical History & Family History Past Medical History?: Yes - Past Social History Smoking Status: Never Smoked Alcohol: Other (unknown) Drugs: Other (unknown) Home Situation {Lives}: Alone - CARDIAC Hx Hypertension: No - PULMONARY Hx Tuberculosis: No - NEUROLOGICAL Hx Seizures: No - HEENT Hx HEENT Problems: No - RENAL Hx Chronic Kidney Disease: No - ENDOCRINE/METABOLIC Hx Endocrine Disorders: No - HEMATOLOGICAL/ONCOLOGICAL Hx Human Immunodeficiency Virus (HIV): No - MUSCULOSKELETAL/RHEUMATOLOGICAL Hx Musculoskeletal Disorders: No - GASTROINTESTINAL Hx Gastrointestinal Disorders: No - GENITOURINARY/GYNECOLOGICAL Hx Sexually Transmitted Disorders: No - PSYCHIATRIC Hx Substance Use: No - SURGICAL HISTORY Hx Surgeries: No Hx Section: Yes - ANESTHESIA Hx Anesthesia: Yes Hx Anesthesia Reactions: No Meds Allergies/Adverse Reactions: Allergies Allergy/AdvReac Type Severity Reaction Status Date / Time No Known Allergies Allergy Verified 11/11/18 02:15 - Medications Medications: Current Medications Benztropine Mesylate (Cogentin) 0.5 mg PO Q6 PRN PRN Reason: Muscle spasm Last Admin: 11/13/18 17:11 Dose: 0.5 mg Haloperidol (Haldol) 5 mg PO Q6 PRN PRN Reason: Agitation Last Admin: 11/13/18 05:37 Dose: 5 mg Hydroxyzine HCl (Atarax) 25 mg PO Q6 PRN PRN Reason: Anxiety Last Admin: 11/13/18 05:36 Dose: 25 mg Sodium Chloride (Sodium Chloride 0.9%) 1,000 mls @ 1,000 mls/hr IV .Q1H ONE Stop: 11/14/18 16:33 Lorazepam (Ativan) 0.5 mg PO Q6 PRN PRN Reason: Agitation Last Admin: 11/13/18 17:11 Dose: 0.5 mg Mirtazapine (Remeron) 15 mg PO HS [facility] Last Admin: 11/13/18 21:06 Dose: 15 mg Olanzapine (Zyprexa) 10 mg PO BID [facility] Last Admin: 11/14/18 09:33 Dose: 10 mg Sertraline HCl (Zoloft) 100 mg PO DAILY [facility] Last Admin: 11/14/18 09:33 Dose: 100 mg Trazodone HCl (Desyrel) 50 mg PO [facility] Last Admin: 11/13/18 21:06 Dose: 50 mg Physical Exam - Constitutional Appears: No Acute Distress, Unkempt, Confused - Head Exam Head Exam: ATRAUMATIC, NORMAL INSPECTION - Eye Exam Eye Exam: EOMI, Normal appearance - ENT Exam ENT Exam: Mucous Membranes Moist - Neck Exam Neck exam: Positive for: Normal Inspection - Respiratory Exam Respiratory Exam: Clear to Auscultation Bilateral, NORMAL BREATHING PATTERN - Cardiovascular Exam Cardiovascular Exam: REGULAR RHYTHM, +S1, +S2 - GI/Abdominal Exam GI & Abdominal Exam: Soft. absent: Tenderness - Extremities Exam Extremities exam: Positive for: normal inspection - Neurological Exam Neurological exam: Alert, Altered Additional comments: nonverbal, not walking, is following commands - Psychiatric Exam Psychiatric exam: Flat Affect Additional comments: nonverbal - Skin Skin Exam: Normal Color, Warm Results - Vital Signs Recent Vital Signs: Last Vital Signs Temp 98.3 F 11/14/18 06:40 Pulse 112 H 11/14/18 15:38 Resp 18 11/14/18 06:40 BP 120/76 11/14/18 15:38 Pulse Ox 100 11/11/18 02:17 - Labs Result Diagrams: 11/14/18 15:58 11/14/18 15:58 Labs: Laboratory Results - last 24 hr 11/14/18 15:24 POC Glucose (mg/dL) 105 Assessment & Plan - Assessment and Plan (Free Text) Assessment: Patient is a 38 yo female with a history of schizophrenia who is currently admitted to the psychiatry unit. Hospitalists were consulted following an ROOM SERVICE BELLHOP due to near syncope and hypotension. Patient was transferred to telemetry. Plan: Hypotension - Responsive to fluids - Afebrile - Monitor on telemetry - 1L NS bolus x1 - EKG pending - CBC, CMP, Mg, Ph pending - TSH, free T4 pending - UA, UCx pending Schizophrenia - Management as per psychiatry (primary) - Zyprexa 10 mg PO BID - Zoloft 100 mg PO daily - Trazodone 50 mg PO QHS - Remeron 15 mg PO QHS Dispo: Transfer back to psych unit once stable. Case discussed with attending, Dr. Hartmann. <Lavinia Hartmann - Last Filed: 11/14/18 17:02> Meds - Medications Medications: Current Medications Benztropine Mesylate (Cogentin) 0.5 mg PO Q6 PRN PRN Reason: Muscle spasm Last Admin: 11/13/18 17:11 Dose: 0.5 mg Haloperidol (Haldol) 5 mg PO Q6 PRN PRN Reason: Agitation Last Admin: 11/13/18 05:37 Dose: 5 mg Hydroxyzine HCl (Atarax) 25 mg PO Q6 PRN PRN Reason: Anxiety Last Admin: 11/13/18 05:36 Dose: 25 mg Lorazepam (Ativan) 0.5 mg PO Q6 PRN PRN Reason: Agitation Last Admin: 11/13/18 17:11 Dose: 0.5 mg Mirtazapine (Remeron) 15 mg PO HS [facility] Last Admin: 11/13/18 21:06 Dose: 15 mg Olanzapine (Zyprexa) 10 mg PO BID [facility] Last Admin: 11/14/18 09:33 Dose: 10 mg Sertraline HCl (Zoloft) 100 mg PO DAILY [facility] Last Admin: 11/14/18 09:33 Dose: 100 mg Trazodone HCl (Desyrel) 50 mg PO HS [facility] Last Admin: 11/13/18 21:06 Dose: 50 mg Results - Vital Signs Recent Vital Signs: Last Vital Signs Temp 98 F 11/14/18 16:30 Pulse 97 H 11/14/18 16:30 Resp 18 11/14/18 16:30 BP 123/84 11/14/18 16:30 Pulse Ox 97 11/14/18 16:30 - Labs Result Diagrams: 11/14/18 15:58 11/14/18 15:58 Labs: Laboratory Results - last 24 hr 11/14/18 11/14/18 11/14/18 15:24 15:58 15:58 WBC 12.9 H RBC 4.24 Hgb 13.0 Hct 38.2 MCV 90.2 MCH 30.6 MCHC 34.0 RDW 12.9 Plt Count 354 MPV 8.7 Neut % (Auto) 51.0 Lymph % (Auto) 39.8 [place] % (Auto) 6.7 Eos % (Auto) 1.4 Baso % (Auto) 1.1 Neut # (Auto) 6.6 Lymph # (Auto) 5.1 H [place] # (Auto) 0.9 H Eos # (Auto) 0.2 Baso # (Auto) 0.1 PT INR APTT D-Dimer, Quantitative Sodium 138 Potassium 4.1 Chloride 98 Carbon Dioxide 31 H Anion Gap 13 BUN 12 Creatinine 0.6 L Est GFR ( Amer) > 60 Est GFR (Non-Af Amer) > 60 POC Glucose (mg/dL) 105 Random Glucose 126 H D Calcium 9.1 Phosphorus 3.9 Magnesium 2.1 Total Bilirubin 0.4 AST 34 ALT 14 Alkaline Phosphatase 66 Total Protein 7.5 Albumin 4.3 Globulin 3.2 Albumin/Globulin Ratio 1.3 Free T4 TSH 3rd Generation 3.20 11/14/18 11/14/18 11/14/18 15:58 16:13 16:32 WBC RBC Hgb Hct MCV MCH MCHC RDW Plt Count MPV Neut % (Auto) Lymph % (Auto) [place] % (Auto) Eos % (Auto) Baso % (Auto) Neut # (Auto) Lymph # (Auto) [place] # (Auto) Eos # (Auto) Baso # (Auto) PT 11.0 INR 1.0 APTT 28 D-Dimer, Quantitative < 200 Sodium Potassium Chloride Carbon Dioxide Anion Gap BUN Creatinine Est GFR ( Amer) Est GFR (Non-Af Amer) POC Glucose (mg/dL) 146 H Random Glucose Calcium Phosphorus Magnesium Total Bilirubin AST ALT Alkaline Phosphatase Total Protein Albumin Globulin Albumin/Globulin Ratio Free T4 1.16 TSH 3rd Generation Attending/Attestation - Attestation I have personally seen and examined this patient.: Yes I have fully participated in the care of the patient.: Yes I have reviewed all pertinent clinical information: Yes Notes (Text): seen and examined by me. Patient is here for psychosis on antipsychotics drugs. ROOM SERVICE BELLHOP called for near syncope and hypotension. Patient's is awake and oriented. no focal weakness. BP improved with hydration. syncope is likely due to hypotension . Hypontension could be due to vasovagal/medication induced we will observe in tele overnight IV hydration,electrolytes are ok follow ekg, plan discussed with the resident
[2018-11-14 16:03] LABS: BASO # 0.1 K/uL (0.0-0.2); BASO % 1.1 % (0.0-2.0); EOS # 0.2 K/uL (0.0-0.7); EOS % 1.4 % (0.0-4.0); LYMPH # 5.1 K/uL (1.0-4.3); LYMPH % 39.8 % (20.0-40.0); MEAN CELL VOLUME 90.2 fL (81.0-99.0); MEAN CORPUSCULAR HEMOGLOBIN 30.6 pg (27.0-31.0); MEAN PLATELET VOLUME 8.7 fL (7.2-11.7); MONO # 0.9 K/uL (0.0-0.8); MONO % 6.7 % (0.0-10.0); NEUT # 6.6 K/uL (1.8-7.0); RBC 4.24 Mil/uL (3.80-5.20); RED CELL DISTRIBUTION WIDTH 12.9 % (11.5-14.5); WHITE BLOOD COUNT 12.9 K/uL (4.8-10.8)
[2018-11-14 16:12] LABS: PARTIAL THROMBOPLASTIN TIME 28 SECONDS (21-34)
[2018-11-14 16:18] LABS: D DIMER < 200 ng/mlDDU (0-243)
[2018-11-14 16:19] LABS: ALB/GLOB RATIO 1.3 (1.0-2.1); ALBUMIN 4.3 g/dL (3.5-5.0); BLOOD UREA NITROGEN 12 mg/dL (7-17); CALCIUM 9.1 mg/dl (8.6-10.4); GFR NON-AFRICAN AMERICAN > 60
[2018-11-14 16:26] LABS: ALT/SGPT 14 U/L (9-52); AST/SGOT 34 U/L (14-36)
[2018-11-14 17:26] LABS: URINE BACTERIA RARE (<OCC); URINE BILIRUBIN NEGATIVE (NEGATIVE); URINE BLOOD 1+ (NEGATIVE); URINE CLARITY Clear (Clear); URINE COLOR Yellow (YELLOW); URINE GLUCOSE (UA) NORMAL (Normal); URINE LEUKOCYTE ESTERASE NEG Leu/uL (Negative); URINE PROTEIN NEGATIVE (NEGATIVE); URINE UROBILINOGEN NORMAL mg/dL (0.2-1.0)
[2018-11-15] MEDS: Sodium Chloride 0.9% 1,000 ML IV SCH (10:44)
--- NOTE | 2018-11-15 12:30 | CP.PCM.PN ---
<Miriam Goldstein - Last Filed: 11/15/18 12:24> Subjective - Date & Time of Evaluation Date of Evaluation: 11/15/18 Time of Evaluation: 12:24 - Subjective Subjective: Medicine Note for Hospitalist Service Patient seen and examined at bedside. Patient has flat affect. She is able to ambulate around the bed without any dizziness. Denied any dizziness, shortness of breath, or chest pain. Objective - Vital Signs/Intake and Output Vital Signs (last 24 hours): Temp Pulse Resp BP Pulse Ox 98.1 F 79 20 109/69 97 11/15/18 07:00 11/15/18 08:20 11/15/18 07:00 11/15/18 07:00 11/15/18 07:00 - Medications Medications: Current Medications Sodium Chloride (Sodium Chloride 0.9%) 1,000 mls @ 100 mls/hr IV .Q10H [facility] Last Admin: 11/15/18 10:44 Dose: 100 mls/hr Mirtazapine (Remeron) 15 mg PO [facility] Last Admin: 11/14/18 22:39 Dose: 15 mg Olanzapine (Zyprexa) 10 mg PO BID [facility] Last Admin: 11/15/18 09:50 Dose: 10 mg Sertraline HCl (Zoloft) 100 mg PO DAILY [facility] Last Admin: 11/15/18 09:50 Dose: 100 mg Trazodone HCl (Desyrel) 50 mg PO HS [facility] Last Admin: 11/14/18 22:39 Dose: 50 mg - Labs Labs: 11/14/18 15:58 11/14/18 15:58 PT 11.0 SECONDS (9.7-12.2) 11/14/18 15:58 INR 1.0 11/14/18 15:58 APTT 28 SECONDS (21-34) 11/14/18 15:58 - Constitutional Appears: No Acute Distress, Unkempt - Head Exam Head Exam: NORMAL INSPECTION, NORMOCEPHALIC - Eye Exam Eye Exam: EOMI, Normal appearance, PERRL Pupil Exam: NORMAL ACCOMODATION - ENT Exam ENT Exam: Mucous Membranes Moist - Respiratory Exam Respiratory Exam: Clear to Ausculation Bilateral, NORMAL BREATHING PATTERN. absent: Decreased Breath Sounds, Rhonchi, Wheezes - Cardiovascular Exam Cardiovascular Exam: REGULAR RHYTHM, +S1, +S2 - GI/Abdominal Exam GI & Abdominal Exam: Soft, Normal Bowel Sounds. absent: Distended, Tenderness - Extremities Exam Extremities Exam: Normal Inspection. absent: Pedal Edema, Tenderness - Neurological Exam Neurological Exam: Alert, Awake, CN II-XII Intact, Oriented x3 - Psychiatric Exam Psychiatric exam: Depressed, Flat Affect - Skin Skin Exam: Dry, Intact, Normal Color, Warm Assessment and Plan - Assessment and Plan (Free Text) Plan: Hypotension - resolved - Responsive to fluids - Afebrile - Monitor on telemetry - 1L NS bolus x1 - EKG - NSR - All labs WNL - UA, UCx - clean catch, no growth Schizophrenia - Management as per psychiatry (primary) - Zyprexa 10 mg PO BID - Zoloft 100 mg PO daily - Trazodone 50 mg PO QHS - Remeron 15 mg PO QHS Disposition: Patient is medically stable for transfer back to psych floor. Dr. Muse accepted. Instructed patient, when she is going to stand up to do so slowly, by first sitting up, then slowing getting up. She is to add salt to her food. Discontinue PRN medications for agitation as that can also cause hypotension. Please reconsult as necessary. Thank you! Case discussed with attending Miriam Atwood DO, PGY2 <Lavinia Hartmann - Last Filed: 11/19/18 16:10> Objective - Vital Signs/Intake and Output Vital Signs (last 24 hours): Temp Pulse Resp BP Pulse Ox 97.7 F 99 H 18 112/69 98 11/19/18 06:17 11/19/18 15:48 11/19/18 06:17 11/19/18 15:48 11/15/18 17:36 - Medications Medications: Current Medications Hydroxyzine HCl (Atarax) 25 mg PO Q6 PRN PRN Reason: Anxiety Last Admin: 11/17/18 14:10 Dose: 25 mg Mirtazapine (Remeron) 30 mg PO HS [facility] Olanzapine (Zyprexa) 10 mg PO BID [facility] Last Admin: 11/19/18 09:35 Dose: 10 mg Sertraline HCl (Zoloft) 100 mg PO DAILY [facility] Last Admin: 11/19/18 09:35 Dose: 100 mg Trazodone HCl (Desyrel) 50 mg PO HS [facility] Last Admin: 03/19/19 21:05 Dose: 50 mg - Labs Labs: 11/14/18 15:58 11/14/18 15:58 PT 11.0 SECONDS (9.7-12.2) 11/14/18 15:58 INR 1.0 11/14/18 15:58 APTT 28 SECONDS (21-34) 11/14/18 15:58 Attending/Attestation - Attestation I have personally seen and examined this patient.: Yes I have fully participated in the care of the patient.: Yes I have reviewed all pertinent clinical information, including history, physical exam and plan: Yes Notes (Text): s/p Hypotension Resolved. d/w resident and agree with the plan
[2018-11-16] MEDS: Sodium Chloride 0.9% 1,000 ML IV SCH ×3 (09:09→16:18)
--- NOTE | 2018-11-17 10:21 | VASCLAB ---
Date of service: 11/15/2018 PROCEDURE: Carotid Duplex Exam. HISTORY: Syncope, orthostatic hypotension COMPARISON: None available. TECHNIQUE: Grayscale and duplex Doppler evaluation of the cervical carotid and vertebral arteries were performed. The common carotid, carotid bifurcations and cervical Internal Carotid Artery (ICA) and proximal External Carotid Artery (ECA) were evaluated. The vertebral arteries were evaluated for gross patency and flow direction. Report prepared by CORIE Hebert FINDINGS: RIGHT CAROTID ARTERIES: 1. Common Carotid Artery: No significant focal plaque formation of the right common carotid artery. Maximum Peak Systolic velocity: 89 cm/sec: End-diastolic velocity 24 cm/sec. 2. Carotid Bifurcation: plaque formation. Maximum Peak Systolic velocity: 61 cm/sec: End-diastolic velocity 24 cm/sec. 3. Internal Carotid Artery: Plaque description: 3.1. Proximal Segment: Peak systolic velocity 82 cm/sec: End-diastolic velocity 37 cm/sec - % stenosis 0-15% 3.2. Middle Segment: Peak systolic velocity 94 cm/sec: End-diastolic velocity 47 cm/sec - % stenosis 0-15% 3.3. Distal Segment: Peak systolic velocity 100 cm/sec: End-diastolic velocity 39 cm/sec - % stenosis 0-15% 4. External Carotid Artery: No significant focal plaque formation. Peak systolic velocity 100 cm/sec 5. ICA/CCA Ratio: 1.3 LEFT CAROTID ARTERIES: 1. Common Carotid Artery: No significant focal plaque formation of the left common carotid artery. Maximum Peak Systolic velocity: 108 cm/sec: End-diastolic velocity 29 cm/sec. 2. Carotid Bifurcation: plaque formation. Maximum Peak Systolic velocity: 81 cm/sec: End-diastolic velocity 26 cm/sec. 3. Internal Carotid Artery: Plaque description: 3.1. Proximal Segment: Peak systolic velocity 74 cm/sec: End-diastolic velocity 30 cm/sec - % stenosis 0-15% 3.2. Middle Segment: Peak systolic velocity 87 cm/sec: End-diastolic velocity 32 cm/sec - % stenosis 0-15% 3.3. Distal Segment: Peak systolic velocity 80 cm/sec: End-diastolic velocity 27 cm/sec - % stenosis 0-15% 4. External Carotid Artery: No significant focal plaque formation. Peak systolic velocity 84 cm/sec 5. ICA/CCA Ratio: 1.1 VERTEBRAL ARTERIES: 1. Right Vertebral Artery: The right vertebral artery flow direction is antegrade. 2. Left Vertebral Artery: The left vertebral artery flow direction is antegrade. OTHER FINDINGS: 1. Right Brachial Blood pressure: 115/80 mmHg. 2. Left Brachial Blood pressure: 110/70 mmHg. IMPRESSION: RIGHT: Duplex scan does not suggest hemodynamically significant stenosis of the right extracranial carotid arteries. LEFT: Duplex scan does not suggest hemodynamically significant stenosis of the left extracranial carotid arteries.
[2018-11-18] MEDS: Sodium Chloride 0.9% 1,000 ML IV SCH ×3 (07:30→08:39)
[2018-11-19 06:17] VITALS: RESP 18
--- NOTE | 2018-11-19 10:09 | PCM.BM ---
<BhargavValdezYu - Last Filed: 11/19/18 10:09> Treatment Plan Problems - Problems identified on initial assessmt Alterate thought process Date Initiated: 11/11/18 Time Initiated: 04:00 Assessment reference: NA Status: Active deffecting copyn Date Initiated: 11/11/18 Time Initiated: 04:00 Assessment reference: NA Status: Active Treatment assets and liabiliti Patient Assests: adapts well, insightful, ADL independent, good support system, cognitively intact Patient Liabilities: poor support system, auditory impairment - Milieu Protocol Maintain good personal hygiene: daily Encourage regular showers, daily Remind patient to perform daily oral care, daily Assist patient to perform ADL's Conduct patient checks and document Observation sheet: Q15 minutes Maintain personal safety: every shift Educate patient to report safety concerns to staff, every shift Monitor environment for contraband/sharps Medication safety: Monitor for expected outcome, potential side effects: every shift, Assess barriers to learning: every shift, Assess readiness for medication education: every shift Milieu Narrative: Schizophrenia paranoid continuous Rule out schizoaffective disorder depressive type -CBT -Psycho education -Supportive therapy and group therapy -Trazodone for insomnia -Zyprexa for psychosis -Hydroxyzine for anxiety -Zoloft for depression -Remeron for depression Family Contact Family involvement: Family/SO is involved Family contact: Patient agrees to contact Family contact name: Alise Cao-sister Family contacted how many times per week?: 1 - Goals for Treatment Patient goals for treatment: "I don't know." Discharge/Continuing Care - Education Needs Education Needs: Patient Medication, Patient Coping Skills - Discharge Discharge Criteria: Tolerates medication w/o severe side effects, Reduction of target symptoms Discharge to:: Home, With Family - Treatment Team Participation Patient/Family/SO Statement: Schizophrenia paranoid continuous Rule out schizoaffective disorder depressive type -CBT -Psycho education -Supportive therapy and group therapy -Trazodone for insomnia -Zyprexa for psychosis -Hydroxyzine for anxiety -Zoloft for depression -Remeron for depression Discussed with Family/SO: No Was Patient/Family/SO present at Treatment Team Meeting: Yes Treatment Plan Review - Problem Alterate thought process Time Initiated: 04:00 deffecting copyn Time Initiated: 04:00 - Discharge / Continuing Care Discharge to:: Home, With Family Behavioral Health Services: Outpatient therapy Health Needs: Medications/Rx <Ann Delgado - Last Filed: 11/19/18 10:56> Treatment Plan Review - Problem Alterate thought process Date Initiated: 11/19/18 Time Initiated: 10:53 Progress toward outcomes: improved deffecting copyn Date Initiated: 11/19/18 Time Initiated: 10:55 Progress toward outcomes: improved <Enid Muse - Last Filed: 11/19/18 13:39> - Diagnosis (1) Schizophrenia Status: Acute Interventions: 11/19/18 13:39 * Assess/adjust medications daily and /or as needed * See patient on an individual basis 7x/week to assess status of hallucinations * Discuss risks, benefits, side effects and alternatives of medications *
--- NOTE | 2018-11-19 13:36 | PCM.PYCHPN ---
Psychiatric Progress Note - Psychiatric Progress Note Patient seen today, length of contact: 15 min Patient Chief Complaint: I was not feeling well.' Problems Identified/Issues Discussed: Patient was seen and evaluated, chart reviewed and discussed the staff. Patient had a rapid response, because of hypotension. So patient was transferred to the medical. Patient remained increasingly disorganized and internally preoccupied. She still appears paranoid, delusional and bizarre. However she is taking medication but denies any side effects. She needs to stay longer for the stabilization of the symptoms. Medication Change: Yes Medical Record Reviewed: Yes Mental Status Examination - Cognitive Function Orientation: Person, Place, Situation, Time Memory: Intact Attention: Poor Concentration: Poor Association: Loose Fund of Knowledge: Poor - Mood Mood: Depressed, Anxious - Affect Affect: Constricted - Speech Speech: Soft - Formal Thought Process Formal Thought Process: Hallucinations, Delusions, Paranoia, Loosening of associations - Suicidal Ideation Suicidal Ideation: No - Homicidal Ideation Homicidal Ideation: No Goal/Treatment Plan - Goal/Treatment Plan Need for Continued Stay: Remain at risks for inpatient hospitalization Progress Toward Problem(s) and Goals/Treatment Plan: Schizophrenia paranoid continuous Rule out schizoaffective disorder depressive type -CBT -Psycho education -Supportive therapy and group therapy -Trazodone for insomnia -Zyprexa for psychosis -Hydroxyzine for anxiety -Zoloft for depression -Remeron for depression
--- NOTE | 2018-11-19 13:39 | PCM.PYCHPN ---
Psychiatric Progress Note - Psychiatric Progress Note Patient seen today, length of contact: 15 min Patient Chief Complaint: I am feeling little better.' Problems Identified/Issues Discussed: Patient was seen and evaluated, chart reviewed and discussed the staff. As per the staff, patient started coming out of her room and she is more visible than before. Patient appears less disorganized and less internally preoccupied. She appears less paranoid, delusional and bizarre than before. However she is taking medication but denies any side effects. She needs to stay longer for the stabilization of the symptoms. Medication Change: Yes Medical Record Reviewed: Yes Mental Status Examination - Cognitive Function Orientation: Person, Place, Situation, Time Memory: Intact Attention: WNL Concentration: Poor Association: Loose Fund of Knowledge: Poor - Mood Mood: Depressed, Anxious - Affect Affect: Constricted - Speech Speech: Soft - Formal Thought Process Formal Thought Process: Delusions, Paranoia, Loosening of associations - Suicidal Ideation Suicidal Ideation: No - Homicidal Ideation Homicidal Ideation: No Goal/Treatment Plan - Goal/Treatment Plan Need for Continued Stay: Remain at risks for inpatient hospitalization Progress Toward Problem(s) and Goals/Treatment Plan: Schizophrenia paranoid continuous Rule out schizoaffective disorder depressive type -CBT -Psycho education -Supportive therapy and group therapy -Trazodone for insomnia -Zyprexa for psychosis -Hydroxyzine for anxiety -Zoloft for depression -Remeron for depression
--- NOTE | 2018-11-19 13:39 | PCM.PYCHPN ---
Psychiatric Progress Note - Psychiatric Progress Note Patient seen today, length of contact: 15 min Patient Chief Complaint: I am feeling little better.' Problems Identified/Issues Discussed: Patient was seen and evaluated, chart reviewed and discussed the staff. Patient appears more organized and less paranoid, and bizarre than before. As per the staff, patient started coming out of her room. She denies any suicidal ideation or any homicidal ideation. However she is taking medication but denies any side effects. She needs to stay longer for the stabilization of the symptoms. Supportive therapy was given Medication Change: Yes Medical Record Reviewed: Yes Mental Status Examination - Cognitive Function Orientation: Person, Place, Situation, Time Memory: Intact Attention: WNL Concentration: WNL Association: WNL Fund of Knowledge: Poor - Mood Mood: Depressed, Anxious - Affect Affect: Constricted - Speech Speech: Soft - Formal Thought Process Formal Thought Process: Loosening of associations - Suicidal Ideation Suicidal Ideation: No - Homicidal Ideation Homicidal Ideation: No Goal/Treatment Plan - Goal/Treatment Plan Need for Continued Stay: Remain at risks for inpatient hospitalization Progress Toward Problem(s) and Goals/Treatment Plan: Schizophrenia paranoid continuous Rule out schizoaffective disorder depressive type -CBT -Psycho education -Supportive therapy and group therapy -Trazodone for insomnia -Zyprexa for psychosis -Hydroxyzine for anxiety -Zoloft for depression -Remeron for depression
[2018-11-19 15:49] VITALS: PULSE 99
[2018-11-20 08:14] VITALS: BP 110/75; TEMP 98.3; O2SAT 99
--- NOTE | 2018-11-20 10:39 | PCM.PYCHDC ---
Mental Status Examination - Mental Status Examination Orientation: Person, Place, Situation, Time Memory: Intact Mood: Neutral Affect: Constricted Speech: Soft Attention: WNL Concentration: WNL Association: WNL Fund of Knowledge: WNL Formal Thought Process: No Impairment Description of patient's judgement and insight: good, fair Psychotic Thoughts and Behaviors: denies any AVH Suicidal Ideation: No Current Homicidal Ideation?: No Discharge Summary - Discharge Note Reason for Hospitalization: This is a 38 year old [place] female, who is single, lives alone, and unemployed, came to [facility] because because of the disorganized behavior. Patient has a long history of schizophrenia paranoid type continues. She has a history of multiple psychiatric hospitalizations. She was last at [facility] almost 2 years ago and did not follow up with a psychiatrist after discharge. Patient is a poor historian. Patient appears disorganized and internally preoccupied. She appears very disheveled and unkempt. She reports that she was taking her medication until they ran out. As per patient she became noncompliant with medications. Patient states she hears voices telling her to harm herself and others. She also states she sees the devil, but it does not say anything to her. She became increasingly disorganized and paranoid. Yesterday she became increasingly disorganized she came to the hospital to get help. She remained made paranoid, psychotic and bizarre throughout the interview. She was responding to internal stimuli, abrupted speech, suspicious of her surroundings, disheveled, and disorganized in appearance and behavior. Consultations:: List each consultation separately and include: 1. Reason for request. 2. Findings. 3. Follow-up Summary of Hospital Course include:: 1. Description of specific treatment plan utilized for patients during their course of treatmen. 2. Summarize the time- course for resolution of acute symptoms and/or regressed behaviors. 3. Describe issues identified and worked on during hospitalization. 4. Describe medication utilized. 5. Describe medical problems identified and treated. 6. Reassessment of suicide risk Summary of Hospital Course: This is a 38 year old [place] female, who is single, lives alone, and unemployed, came to [facility] because because of the disorganized behavior. Patient has a long history of schizophrenia paranoid type continues. She has a history of multiple psychiatric hospitalizations. She was last at [facility] almost 2 years ago and did not follow up with a psychiatrist after discharge. Patient is a poor historian. Patient appears disorganized and internally preoccupied. She appears very disheveled and unkempt. She reports that she was taking her medication until they ran out. As per patient she became noncompliant with medications. Patient states she hears voices telling her to harm herself and others. She also states she sees the devil, but it does not say anything to her. She became increasingly disorganized and paranoid. Yesterday she became increasingly disorganized she came to the hospital to get help. She remained made paranoid, psychotic and bizarre throughout the interview. She was responding to internal stimuli, abrupted speech, suspicious of her surroundings, disheveled, and disorganized in appearance and behavior. PsychHx: Schizophrenia paranoid type continues MedHx: denies Allergies: unobtainable Meds: Risperdal, Benztropine - Diagnosis (1) Schizophrenia Current Visit: Yes Status: Acute - Final Diagnosis (DSM 5) Condition upon Discharge: FAIR DSM 5: Schizoaffective disorder depressive type Disposition: HOME/ ROUTINE Follow-up Treatment Plan: Schizophrenia paranoid continuous Rule out schizoaffective disorder depressive type -CBT -Psycho education -Supportive therapy and group therapy -Trazodone for insomnia -Zyprexa for psychosis -Hydroxyzine for anxiety -Zoloft for depression -Remeron for depression Prescriptions/Medication Reconciliation: Mirtazapine [Remeron] 15 mg PO HS #30 tab OLANZapine [Zyprexa] 10 mg PO BID #60 tab Sertraline [Zoloft] 100 mg PO DAILY #30 tab traZODone [Desyrel] 50 mg PO HS #30 tab - Smoking Cessation Smoking Cessation Medication prescribed: No - Antipsychotic Medications Pt discharged on 2 or more routine antipsychotic medications: No
== END 2018-11-20 12:43 | disposition home or self-care (01) | DRG 885 ==
LOC: C.ER 02:03 → C.5E 02:15 → C.5S 11-14 16:40 → C.5E 11-15 11:27
PROVIDERS: ADMIT Psychiatry & Neurology Psychiatry; ATTEND Psychiatry & Neurology Psychiatry
PROC: GZHZZZZ Group Psychotherapy (ICD-10-PCS; principal; 2018-11-11)
PROC: GZ58ZZZ Individual Psychotherapy, Cognitive-Behavioral (ICD-10-PCS; 2018-11-11)
PROC: GZ56ZZZ Individual Psychotherapy, Supportive (ICD-10-PCS; 2018-11-11)
DX: F25.1 Schizoaffective disorder, depressive type (principal); G47.00 Insomnia, unspecified; Z91.14 Patient's other noncompliance with medication regimen; F41.9 Anxiety disorder, unspecified; R45.1 Restlessness and agitation; I95.2 Hypotension due to drugs; T50.995A Adverse effect of other drugs, medicaments and biological substances, initial encounter; R55 Syncope and collapse